=== PATIENT | male | born 1975 | race Caucasian/White ===

== ENCOUNTER → 2017-09-07 | Outpatient (CLI) | payer BC ==
[~2017-09-07] MED LIST: OPTIRAY 320 IV PRN
--- NOTE | 2017-09-07 14:53 | DIAGNOSTIC IMAGING REPORT ---
CT OF THE CHEST WITH IV CONTRAST CLINICAL HISTORY: Left femoral neck lesion. COMPARISON STUDY: No previous studies for comparison. TECHNIQUE: Following IV administration of 94 mL of Optiray-320, helical axial images of the chest were obtained. Sagittal and coronal reconstructions were viewed as well as maximal intensity projections on an independent 3-D workstation. A dose lowering technique was utilized adhering to the principles of ALARA. FINDINGS: No enlarged axillary, mediastinal or hilar lymph nodes are present. The size of the heart is normal. There is no pericardial effusion. A calcified left hilar lymph node is present. There is a 6 mm calcified granuloma within the lingula. The central airways are patent. There is no consolidation to suggest pneumonia. No pneumothorax or pleural effusion is present. There are no suspicious pulmonary nodules. No suspicious osseous lesions within the bony thorax are noted. The abdomen and pelvis will be reported separately. IMPRESSION: Unremarkable chest CT. No thoracic lymphadenopathy or suspicious pulmonary nodules. Electronically signed by: Nando Ambrose M.D. 09/07/2017 2:52 PM Dictated Date/Time: 09/07/2017 2:46 PM
--- NOTE | 2017-09-07 15:02 | DIAGNOSTIC IMAGING REPORT ---
ABDOMEN AND PELVIS CT WITH IV AND ORAL CONTRAST CT DOSE: 913.49 mGy.cm HISTORY: Follow-up study to assess sclerotic lesion of the left proximal femur. CT TECHNIQUE: Multiaxial CT images of the abdomen and pelvis were performed following the use of intravenous and oral contrast. A dose lowering technique was utilized adhering to the principles of ALARA. COMPARISON STUDY: CT chest of same day. FINDINGS: Partially imaged calcified granuloma of the lingula. Lung bases are otherwise clear. There is no pneumatosis or pneumoperitoneum. Imaged inferior cardiac chambers are unremarkable. The liver, gallbladder, spleen, pancreas and adrenal glands are within normal limits. Kidneys, ureters and bladder are unremarkable. Prostate is unremarkable. Calcifications of the pelvis suggest phleboliths. Aorta is normal in course and caliber. There is a mild degree of mixed atheromatous and atherosclerotic plaquing of the iliac bifurcation. No enlarged lymph nodes identified. No bowel obstruction or focal bowel wall thickening identified. Prior appendectomy. The large bowel appears to be within normal limits. Soft tissues are unremarkable. Tiny fat filled periumbilical hernia, diastases 1.3 cm. The bones appear intact. Mild marginal spurring at L5-S1 with additional mild multilevel endplate spurring throughout the thoracic spine. There is a sclerotic intramedullary lesion involving the intratrochanteric left femoral neck with a thin zone of transition without aggressive features, endosteal scalloping, cortical breakthrough or soft tissue mass identified measuring 3.3 x 1.9 x 4.7 cm in transverse, AP and craniocaudal dimensions respectively. No additional lytic or sclerotic lesions are identified. IMPRESSION: 1. No acute intra-abdominal or intrapelvic abnormality identified. 2. Prior appendectomy. 3. 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 Electronically signed by: Polo Pate M.D. 09/07/2017 3:01 PM Dictated Date/Time: 09/07/2017 2:47 PM
== END | disposition home or self-care (01) ==
LOC: C.CTS 12:00
PROVIDERS: ATTEND Nurse Practitioner
DX: M89.8X5 Other specified disorders of bone, thigh (principal)

== ENCOUNTER → 2017-09-12 | Outpatient (CLI) | payer BC ==
--- NOTE | 2017-09-12 10:51 | DIAGNOSTIC IMAGING REPORT ---
BONE SCAN WHOLE BODY CLINICAL HISTORY: SCLEROTIC LESION OF THE PROXIMAL LEFT FEMUR COMPARISON STUDY: CT scan dated 09/07/2017 FINDINGS: The patient was injected with 24.5 mCi of technetium 99m MDP. Three-hour delayed whole body images were acquired. There is a focus of mild increased activity corresponding to the sclerotic lesion of the proximal left femur. Skeletal uptake is otherwise within normal limits. IMPRESSION: 1. Mild increased activity corresponding to the sclerotic lesion of the proximal left femur. Otherwise normal whole-body bone scan Electronically signed by: Julien Pittman M.D. 09/12/2017 10:50 AM Dictated Date/Time: 09/12/2017 10:45 AM
== END | disposition home or self-care (01) ==
LOC: C.NUCL 06:58
PROVIDERS: ATTEND Nurse Practitioner
DX: M89.8X5 Other specified disorders of bone, thigh (principal)

== ENCOUNTER → 2017-09-15 | Outpatient (CLI) | payer BC | END | disposition home or self-care (01) | LOC: C.RDSM 13:34 | PROVIDERS: ATTEND Orthopaedic Surgery Sports Medicine | DX: R52 Pain, unspecified (principal) ==